=== PATIENT | female | born 1995 | race Caucasian/White ===

== ENCOUNTER 2021-03-16 18:56 | Emergency (ER) | payer OTHER, BC ==
[2021-03-16 19:32] VITALS: BP 158/67; PULSE 116; RESP 18; TEMP 98.6
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
== END 2021-03-16 22:11 | disposition home or self-care (01) ==
LOC: EC 18:56
DX: S00.83XA Contusion of other part of head, initial encounter (principal); V89.2XXA Person injured in unspecified motor-vehicle accident, traffic, initial encounter
CPT/HCPCS: 70450; 72125; 99284